=== PATIENT | male | born 1980 | race African-American/Black ===

== ENCOUNTER 2017-04-26 16:50 | Emergency (ER) ==
[~2017-04-26] VITALS: Ht 170.2 cm; Wt 74.5 kg
[2017-04-26 16:58] VITALS: BP 128/78; PULSE 76; TEMP 36.9; O2SAT 98; Ht 170.2 cm; Wt 74.5 kg
== END 2017-04-26 19:20 | disposition left against medical advice (07) ==
LOC: C.EDB 16:52
DX: R07.9 Chest pain, unspecified (principal)